=== PATIENT | male | born 2000 | race African-American/Black ===

== ENCOUNTER 2019-07-16 10:51 | Emergency (ER) | payer SELFPAY ==
[2019-07-16 11:08] VITALS: BP 157/70; PULSE 109; TEMP 98.2; BMI 18.4
--- NOTE | 2019-07-16 12:10 | PDOC ---
History of Present Illness - General Chief Complaint: RX Refill Stated Complaint: RX REFILLS Time Seen by Provider: 07/16/19 11:13 History Source: Patient Exam Limitations: No Limitations Past History - Travel Traveled outside of the country in the last 30 days: No Close contact w/someone who was outside of country & ill: No - Past Medical History Allergies/Adverse Reactions: Allergies Allergy/AdvReac Type Severity Reaction Status Date / Time No Known Allergies Allergy Verified 07/16/19 11:02 Home Medications: Ambulatory Orders Fluoxetine HCl 20 mg PO DAILY #30 capsule 07/16/19 COPD: No - Immunization History Immunization Up to Date: Yes - Psycho Social/Smoking Cessation Hx Smoking History: Never smoked Hx Alcohol Use: No Drug/Substance Use Hx: No Review of Systems - Review of Systems Able to Perform ROS?: Yes Comments:: 07/16/19 12:04 CONSTITUTIONAL: Absent: fever, chills, diaphoresis, generalized weakness, malaise, loss of appetite HEENT: Absent: rhinorrhea, nasal congestion, throat pain, throat swelling, difficulty swallowing, mouth swelling, ear pain, eye pain, visual Changes SKIN: Absent: rash, itching, pallor NEUROLOGIC: Absent: headache, focal weakness or paresthesias, dizziness, unsteady gait, seizure, mental status changes, bladder or bowel incontinence PSYCHIATRIC: Absent: anxiety, depression, suicidal or homicidal ideation, hallucinations. Is the patient limited Macedonian proficient: No *Physical Exam - Vital Signs Last Vital Signs Temp Pulse Resp BP Pulse Ox 98.2 F 109 H 18 157/70 97 07/16/19 11:03 07/16/19 11:03 07/16/19 11:03 07/16/19 11:03 07/16/19 11:03 - Physical Exam 07/16/19 12:04 GENERAL: The patient is awake, alert, and fully oriented, in no acute distress. HEAD: Normal with no signs of trauma. EYES: Pupils equal, round and reactive to light, extraocular movements intact, sclera anicteric, conjunctiva clear. EXTREMITIES: Normal range of motion, no edema. NEUROLOGICAL: Normal speech, normal gait. PSYCH: Normal mood, normal affect. No suicidal ideation, homicidal ideation, AV hallucinations. SKIN: Warm, Dry, normal turgor, no rashes or lesions noted. Medical Decision Making - Medical Decision Making 07/16/19 12:06 The patient is a 19-year-old male with past medical history of depression, who presents to the ER today for refill of his medication. He states he is visiting from [place] and has run out of his medication. He has the bottle with him. He denies SI, HI, AV hallucinations. He has no other complaints today. A/P: Medication refill Patient denies all suicidal ideation, homicidal ideation, AV hallucinations. Last fill date on his prescription bottle was 06/15/2019. Patient is compliant with his medications. Will refill his fluoxetine 20 mg daily. Discharge home I discussed the physical exam findings, ancillary test results and final diagnoses with the patient. I answered all of the patient's questions. The patient was satisfied with the care received and felt comfortable with the discharge plan and treatment plan. The Patient agrees to follow up with the primary care physician/specialist within 24-72 hours. Return precautions were given. Discharge - Discharge Information Problems reviewed: Yes Clinical Impression/Diagnosis: Medication refill Condition: Stable Disposition: HOME - Admission No - Follow up/Referral - Patient Discharge Instructions Additional Instructions: You had your medication refilled today Please follow up with your clinic in [place] for future refills Return to the ER for any new or worsening symptoms This website should help you apply to medicaid in [place] [email or web address] - Post Discharge Activity
== END 2019-07-16 12:27 | disposition home or self-care (01) ==
LOC: JERFT 10:51
DX: Z76.0 Encounter for issue of repeat prescription (principal)
CPT/HCPCS: 99281-25